=== PATIENT | female | born 1960 | race Caucasian/White ===

== ENCOUNTER → 2016-11-10 | Outpatient (CLI) | payer BC ==
[~2016-11-10] MED LIST: Levothyroxine PO; MULT-506 PO
[2016-11-10 12:01] LABS: THYROID STIMULATING HORMONE 0.895 uIu/ml (0.300-4.500)
== END | disposition home or self-care (01) ==
LOC: C.LAB 17:57
PROVIDERS: ATTEND Internal Medicine Endocrinology, Diabetes & Metabolism
DX: E03.9 Hypothyroidism, unspecified (principal)

== ENCOUNTER → 2016-12-19 | Outpatient (CLI) | payer BC ==
--- NOTE | 2016-12-19 09:12 | DIAGNOSTIC IMAGING REPORT ---
LUMBAR SPINE CT CT DOSE: 589.36 mGy.cm HISTORY: Lymphoma. Back pain. 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 COMPARISON: None. FINDINGS: No fractures. No subluxation. Paraspinal soft tissues are unremarkable. Mild broad-based bulging discs from L3 through L5. No evidence for compression deformity. IMPRESSION: Mild degenerative disc bulges from L3 through L5. Otherwise negative lumbar spine. Electronically signed by: Zhen Johnston M.D. 12/19/2016 9:10 AM Dictated Date/Time: 12/19/2016 9:08 AM
== END | disposition home or self-care (01) ==
LOC: C.CTS 08:48
PROVIDERS: ATTEND Physician Assistant Medical
DX: D72.9 Disorder of white blood cells, unspecified (principal); M54.5 Low back pain; C85.90 Non-Hodgkin lymphoma, unspecified, unspecified site

== ENCOUNTER → 2017-02-23 | Outpatient (CLI) | payer BC ==
[2017-03-05 13:27] LABS: NEO FISH IgH BCL2 t(14;18) See Separate Report; NEO FISH MALT1 (18q21) See Separate Report
== END | disposition home or self-care (01) ==
LOC: C.PATHSPEC 17:13
PROVIDERS: ATTEND Plastic Surgery
DX: C85.10 Unspecified B-cell lymphoma, unspecified site (principal)

== ENCOUNTER → 2017-04-24 | Outpatient (CLI) | payer BC ==
[2017-04-24 10:21] LABS: THYROID STIMULATING HORMONE 2.11 uIu/ml (0.300-4.500)
== END | disposition home or self-care (01) ==
LOC: C.LABSPEC 15:15
PROVIDERS: ATTEND Internal Medicine Endocrinology, Diabetes & Metabolism
DX: E03.9 Hypothyroidism, unspecified (principal)

== ENCOUNTER → 2017-06-01 | Outpatient (CLI) | payer BC ==
--- NOTE | 2017-06-01 10:34 | DIAGNOSTIC IMAGING REPORT ---
PET/CT SKULL-THIGH CLINICAL HISTORY: LYMPHOMA COMPARISON STUDY: 07/16/2016 FINDINGS: The patient was injected with 14.3 mCi of F 18 labeled FDG. Following the standard induction phase, PET/CT imaging was performed from the skull base the upper thigh region. Activity within the neck is felt to be physiologic. Within the chest, there is no pathologic sg or parenchymal activity. There is right upper lobe scarring similar to the preceding study. Within the abdomen and pelvis, there is no pathologic hepatic or splenic activity. The spleen is of normal size. There is mild infiltration of the mesentery. Small mesenteric lymph nodes have diminished in size when compared the preceding study. There is no pathologic sg activity within the abdomen or pelvis. There is physiologic urinary tract and bowel activity. The previously identified FDG avid right inguinal lymph node appears architecturally normal with no pathologic activity. There is no pathologic skeletal activity. IMPRESSION: No evidence of FDG avid disease. Electronically signed by: Fredis Alonso M.D. 06/01/2017 10:33 AM Dictated Date/Time: 06/01/2017 10:26 AM
== END | disposition home or self-care (01) ==
LOC: C.PET 08:04
PROVIDERS: ATTEND Internal Medicine Hematology & Oncology
DX: C82.11 Follicular lymphoma grade II, lymph nodes of head, face, and neck (principal)

== ENCOUNTER → 2017-06-15 | Outpatient (CLI) | payer BC ==
[2017-06-16 11:41] LABS: THYROGLOBULIN <0.1 NG/ML (2.8-40.9)
== END | disposition home or self-care (01) ==
LOC: C.LAB 12:52
PROVIDERS: ATTEND Internal Medicine Endocrinology, Diabetes & Metabolism
DX: C73 Malignant neoplasm of thyroid gland (principal)

== ENCOUNTER → 2017-06-22 | Outpatient (CLI) | payer BC ==
--- NOTE | 2017-06-23 07:46 | MAMMOGRAPHY REPORT ---
BILATERAL DIGITAL SCREENING MAMMOGRAM TOMOSYNTHESIS WITH CAD: 06/22/2017 CLINICAL HISTORY: Routine screening. Patient has no complaints. TECHNIQUE: Breast tomosynthesis in addition to standard 2D mammography was performed. Current study was also evaluated with a Computer Aided Detection (CAD) system. COMPARISON: Comparison is made to exams dated: 06/09/2016 mammogram, 06/04/2015 mammogram, 12/04/2014 ultrasound, 06/05/2014 ultrasound, 05/01/2014 mammogram - [facility], and 1 mammogram - [facility] [place]. BREAST COMPOSITION: There are scattered areas of fibroglandular density in both breasts. FINDINGS: There is a stable biopsy marker in the lower inner anterior right breast. Stable nodulari ty and asymmetry in the left breast. No new suspicious mass, architectural distortion or cluster of m icrocalcifications is seen. IMPRESSION: ACR BI-RADS CATEGORY 1: NEGATIVE There is no mammographic evidence of malignancy. A 1 year screening mammogram is recommended. The pa tient will receive written notification of the results. Approximately 10% of breast cancers are not detected with mammography. A negative mammographic report should not delay biopsy if a clinically suggestive mass is present. Mihaela Fernandes M.D. ay/:06/22/2017 20:13:25 Dry Mop Maker: Jazmin FERGUSON(Tito)(M), [facility] letter sent: Normal 1/2 BI-RADS Code: ACR BI-RADS Category 1: Negative
== END | disposition home or self-care (01) ==
LOC: C.MAMM 13:22
PROVIDERS: ATTEND Physician Assistant
DX: Z12.31 Encounter for screening mammogram for malignant neoplasm of breast (principal); C85.90 Non-Hodgkin lymphoma, unspecified, unspecified site